=== PATIENT | male | born 1945 | race Caucasian/White ===

== ENCOUNTER 2022-10-11 00:56 | Observation (INO) ==
[2022-10-11 01:37] LABS: ABS Eosinophils 0.4 10^3/uL (0.0-0.5); ABS Lymphocytes 0.8 10^3/uL (1.0-4.8); ABS Monocytes 0.7 10^3/uL (0.0-1.1); ABS Nucleated RBC 0.01 10^3/ul; Eosinophil % 10.2 %; Hematocrit 32.5 % (38-53); Hemoglobin 11.3 g/dL (13.2-16.3); Lymphocyte % 20.7 %; Mean Corpuscular Hemoglobin 32.5 pg (27-33); Mean Corpuscular Hgb Conc 34.9 g/dL (31-36); Mean Platelet Volume 8.6 fL (7.5-11.2); Nucleated Red Blood Cells % 0.1 /100 WBC (0.0-0.4); Platelet Count 166 10^3/uL (150-450); Red Cell Distribution Width 15.1 % (12-17); White Blood Count 3.9 10^3/uL (3.6-10.2)
[2022-10-11 01:47] LABS: Activated Partial Thrombo Time 30.5 seconds (26.0-38.0); INR 1.12 (0.88-1.18)
[2022-10-11] MEDS ORDERED: Iodixanol (CONTRAST) 320 MG/ML 100 ML SDV IV ONE (01:49)
[2022-10-11 01:56] LABS: Albumin/Globulin Ratio 1.3 (1-3); Calcium 8.7 mg/dL (8.6-10.3); Creatinine, Serum 0.97 mg/dL (0.67-1.17); HDL Cholesterol 71.3 mg/dL; Potassium 4.1 mmol/L (3.5-5.0); Total Bilirubin 0.2 mg/dL (0.2-1.0); eGFR CKD-EPI 81.4 (>60)
[2022-10-11] MEDS ORDERED: NS 0.9% 1000 ml BAG 1,000 ML IV ONE (03:07)
[2022-10-11 04:31] LABS: Urine Appearance Clear; Urine Bilirubin Negative (Negative); Urine Blood Negative (Negative); Urine Color Yellow; Urine Glucose Negative (Negative); Urine Ketones Negative (Negative); Urine Nitrite Negative (Negative); Urine Protein Negative (Negative); Urine Urobilinogen Negative (Negative)
[2022-10-11 04:46] LABS: Urine Specific Gravity > 1.060 (1.002-1.030)
[2022-10-11] MEDS ORDERED: Haloperidol 5 mg/ml SDV IV/IM 5 MG/ML AMP IV SLOW PU ONE (08:54)
[2022-10-11] MEDS ORDERED: Valproic Acid IV 100 MG/ML 5 ML VIAL (500 MG) IVPB ONE (09:27)
[2022-10-11] MEDS ORDERED: Valproic Acid IV 1,000 MG in NS 0.9% 100 ml BAG 100 ML IVPB ONE (10:00)
[2022-10-11] MEDS: Mometasone/Formoter 200/5 MDI INH SCH ×2 (11:32→20:33)
[2022-10-11] MEDS ORDERED: Enoxaparin 40 MG/0.4 ML SYR SUBCUT SCH (21:00)
[2022-10-12] MEDS: Mometasone/Formoter 200/5 MDI INH SCH (07:17)
[2022-10-12 11:27] VITALS: BP 143/73
== END 2022-10-12 14:50 | disposition home or self-care (01) ==
LOC: EDHOLD 00:56 → ED 00:56 → SUATTDRO 05:54 → MEDTELE 09:35
PROVIDERS: ADMIT Hospitalist; ATTEND Internal Medicine